=== PATIENT | male | born 1990 | race Caucasian/White ===

== ENCOUNTER 2018-10-29 20:26 | Emergency (ER) | payer OTHER, MEDICAID ==
[~2018-10-29] VITALS: Ht 175.3 cm; Wt 88.9 kg
[2018-10-29 20:32] VITALS: BP 137/68
[2018-10-29] MEDS ORDERED: NABUMETONE 750750 M1 PO (20:51)
[2018-10-29] MEDS ORDERED: AMOXICILLIN 50500 MG PO (20:51)
[2018-10-29] MEDS ORDERED: TRAMADOL 50 MG50 MG PO (20:51)
== END 2018-10-29 22:46 | disposition home or self-care (01) ==
LOC: M.ERS 20:26
DX: K08.89 Other specified disorders of teeth and supporting structures (principal); F17.200 Nicotine dependence, unspecified, uncomplicated; Z91.041 Radiographic dye allergy status

== ENCOUNTER 2019-06-27 13:20 | Emergency (ER) | payer OTHER ==
[~2019-06-27] VITALS: Ht 175.3 cm; Wt 86.2 kg
[~2019-06-27 13:20] MED LIST: AMOXICILLIN 50500 MG PO; NABUMETONE 750750 M1 PO; TRAMADOL 50 MG50 MG PO
[2019-06-27] MEDS ORDERED: TRAMADOL 50 MG50 MG PO (14:56)
[2019-06-27] MEDS ORDERED: NABUMETONE 750750 M1 PO (14:56)
[2019-06-27] MEDS ORDERED: PENICILLIN V P500 MG PO (14:56)
[2019-06-27 15:01] VITALS: BP 132/78
== END 2019-06-27 15:02 | disposition home or self-care (01) ==
LOC: M.ERS 13:20
DX: K04.7 Periapical abscess without sinus (principal); Z91.041 Radiographic dye allergy status